=== PATIENT | female | born 1935 | race Two or more races ===

== ENCOUNTER 2016-11-15 19:58 | Inpatient (IN) | payer MEDICARE, MEDICAID ==
[2016-11-15] VITALS: BP 106/70
[~2016-11-15] VITALS: Ht 152.4 cm; Wt 69.7 kg
--- NOTE | 2016-11-15 20:19 | NUR ---
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 PT IS CURRENTLY AFEBRILE. PT IS AMBULATORY WITH A SLOW STEADY GAIT. PT WALKED TO ER 4 AND WAS PLACED ON THE MONITOR AND CONTINUOUS PULSE OX.
[2016-11-15] MEDS ORDERED: IV NS 0.9% 500 ML BAG IV ONE (20:30)
[2016-11-15 20:33] LABS: BASOPHILS % (AUTO) 0.2 % (0.0-2.0); EOSINOPHILS % (AUTO) 0.3 % (0.0-6.0); HEMATOCRIT 41 % (33-45); HEMOGLOBIN 13.7 g/dL (11.5-14.8); LYMPHOCYTES # (AUTO) 0.6 /CMM (0.8-4.8); LYMPHOCYTES % (AUTO) 6.9 % (20.0-44.0); MEAN CORPUSCULAR HEMOGLOBIN 30 PG (26.0-33.0); MEAN CORPUSCULAR HGB CONC 34 g/dl (31.0-36.0); MEAN CORPUSCULAR VOLUME 88 fL (82-100); MONOCYTES # (AUTO) 0.9 /CMM (0.1-1.30); MONOCYTES % (AUTO) 9.1 % (2.0-12.0); NEUTROPHILS # (AUTO) 7.9 /CMM (1.8-8.9); NEUTROPHILS % (AUTO) 83.5 % (43.0-81.0); PLATELET COUNT (AUTO) 305 /CMM (150-450); RDW COEFFICIENT OF VARIATION 13.8 (11.5-15.0); WHITE BLOOD COUNT (AUTO) 9.4 K/uL (4.3-11.0)
[2016-11-15 20:36] LABS: APPEARANCE,URINE Clear (CLEAR); BILIRUBIN,URINE SMALL (NEGATIVE); BLOOD, URINE Negative Ery/uL (NEGATIVE); COLOR,URINE Yellow (YELLOW); KETONES,URINE Negative (NEGATIVE); LEUKOCYTE ESTERASE ,URINE Trace (NEGATIVE); NITRITE, URINE Negative (NEGATIVE); PROTEIN,URINE Negative (NEGATIVE); UGLUCOSE Negative (NEGATIVE)
[2016-11-15 20:44] LABS: CALCIUM, SERUM 8.9 mg/dL (8.5-10.1); CARBON DIOXIDE 29 mmol/L (21-32); CHLORIDE 98 mmol/L (98-107); CREATININE 1.6 mg/dL (0.6-1.3); GLUCOSE 127 mg/dL (74-106); POTASSIUM 3.8 mmol/L (3.5-5.1); SODIUM SERUM 135 mmol/L (136-145); UREA NITROGEN, BLOOD 31 mg/dL (7-18)
[2016-11-15 20:47] LABS: BACTERIA,URINE Rare /HPF (None Seen); HYALINE CASTS, URINE Rare /LPF (None Seen); RBC,URINE 0-2 /HPF (0-2); SQUAMOUS EPITHELIAL CELL,UR Few /HPF (None Seen)
[2016-11-15 20:48] LABS: INR 1.02 (0.87-1.13); PROTHROMBIN TIME 10.6 SECS (9.5-12.7)
[2016-11-15 20:52] LABS: TROPONIN I < 0.017 ng/mL (0.00-0.056)
[2016-11-15] MEDS ORDERED: IV NS 0.9% 500 ML IV ONE (20:52)
[2016-11-15] MEDS ORDERED: IV SET PRIMARY 1 EA INFUS.SET MC ONE (20:52)
[2016-11-15 20:57] LABS: ALANINE AMINOTRANSFERASE 96 U/L (12-78); ALBUMIN 3.5 g/dL (3.4-5.0); ALKALINE PHOSPHATASE 321 U/L (46-116); ASPARTATE AMINOTRANSFERASE 88 U/L (15-37); B-TYPE NATRIURETIC PEPTIDE 5182 PG/ML (0-125); BILIRUBIN,DIRECT 4.3 mg/dL (0.0-0.2); BILIRUBIN,TOTAL 5.6 mg/dL (0.2-1.0)
[2016-11-15 21:28] LABS: BAND % (MANUAL) 1 % (0.0-5.0); LYMPHOCYTES % (MANUAL) 7 % (16-48); MONOCYTES % (MANUAL) 3 % (0-11.0); NEUTROPHILS % (MANUAL) 89 (42-76)
--- NOTE | 2016-11-15 22:10 | NUR ---
DR. NIÑO IS AT THE BEDSIDE SPEAKING TO THE PT AND THE FAMILY.
[2016-11-15] MEDS ORDERED: SIMV20TA6 PO (22:37)
[2016-11-15] MEDS ORDERED: MEMA10TA PO (22:43)
[2016-11-15] MEDS ORDERED: FERR-58 PO (22:43)
[2016-11-15] MEDS ORDERED: METO-304 PO (22:43)
[2016-11-15] MEDS ORDERED: ASPI-991 PO (22:43)
[2016-11-15] MEDS ORDERED: POTA-58 PO (22:43)
[2016-11-15] MEDS ORDERED: TRIA0.252 PO (22:43)
[2016-11-15] MEDS ORDERED: LEVO25TA7 PO (22:43)
[2016-11-15] MEDS ORDERED: FURO40TA5 PO (22:43)
--- NOTE | 2016-11-15 23:09 | NUR ---
PT APPEARS TO BE RESTING COMFORTABLY IN A CHAIR AT THE BEDSIDE. PT STATED THAT THE GURNEY WAS BOTHERING HER.
--- NOTE | 2016-11-15 23:18 | NUR ---
CALLED NURSING SUP. FOR MS BED
--- NOTE | 2016-11-15 23:40 | NUR ---
MS SHELTER ADVOCATE NOTES ADMITTED THIS 81 Y.O. FEMALE FROM ER PER WHEELCHAIR ACCOMPANIED BY FAMILY MEMBERS,WITH CHIEF COMPLAINTS OF FEVER/SOB X 1 DAY.A/O X2-3.SPEAK KOREAN ONLY.NO SKIN ISSUES,SALINE LOCK RIGHT AC INTACT AND PATENT.VITAL SIGNS WITH IN NORMAL LIMITS.C/O MILS PAIN 2/10 ON PAIN SCALE WHEN PRESSING HER ABDOMEN.NO NAUSEA AT THE MOMENT.CALL COLLINS AT BEDSIDE FOR ASSISTANCE.AWAITING ORDERS FROM DR FARLEY.
[2016-11-16] VITALS (8 sets, daily range): BP systolic 96–112; BP diastolic 54–80
[2016-11-16] MEDS ORDERED: ZOLPIDEM TARTRATE 5 MG TABLET ONE ×2 (00:45→00:53)
[2016-11-16] MEDS: ZOLPIDEM TARTRATE 5 MG TABLET PO PRN ×2 (00:50→22:36)
--- NOTE | 2016-11-16 00:50 | NUR ---
MS RN NOTES C/ INSOMNIA,MEDICATED WITH AMBIEN 5MG ORDERED,BUT FAMILY MEMBER WANTS TO GIVE 2.5 ONLY THIS TIME.
[2016-11-16] MEDS ORDERED: MAGNESIUM HYDROXIDE 30 ML UDC PO PRN (01:00)
[2016-11-16] MEDS ORDERED: MAG HYDROX/AL HYDROX/SIMETH 30 ML UDC PO PRN (01:00)
[2016-11-16] MEDS ORDERED: ACETAMINOPHEN 325 MG TABLET PO PRN (01:00)
[2016-11-16] MEDS ORDERED: Z GUARD REMEDY 2 OZ OINT TP PRN (01:00)
[2016-11-16] MEDS ORDERED: HYDROCODONE/APAP 5/325MG 1 EACH TABLET PO PRN (01:00)
[2016-11-16] MEDS ORDERED: ONDANSETRON HCL/PF 4 MG/2 ML VIAL IVP PRN (01:00)
--- NOTE | 2016-11-16 01:30 | NUR ---
MS RN NOTES INSTRUCTED NPO EXCEPT MEDS,GOING FOR NM BILIARY HIDA SCAN TOMORROW.CONSENT SIGNED BY GRAND DAUGHTER YANNI HARRIS.
--- NOTE | 2016-11-16 03:00 | NUR ---
MS RN NOTES SOUND ASLEEP,KEPT WARM AND COMFORTABLE.
[2016-11-16] MEDS ORDERED: IV SET PRIMARY PUMP SET 1 EA INFUS.SET MC ONE (04:28)
[2016-11-16] MEDS ORDERED: IV NS 0.9% 250 ML IV ONE (04:28)
[2016-11-16] MEDS ORDERED: PIPERACILLIN /TAZOBACTAM 3.375 G VIAL IV ONE (04:28)
[2016-11-16] MEDS ORDERED: SECONDARY IV SET 1 EA INFUS.SET MC ONE (04:28)
[2016-11-16] MEDS ORDERED: IV NS 0.9% 0 ML IV ONE (04:34)
[2016-11-16] MEDS ORDERED: IV D5W 50 ML IV ONE (04:38)
--- NOTE | 2016-11-16 05:44 | NUR ---
MS RN NOTES STARTED ON ZOSYN 3.375GM IVPB.
[2016-11-16] MEDS ORDERED: PIPERACILLIN /TAZOBACTAM 3.375 G in IV D5W 50 ML IV SCH (06:00)
--- NOTE | 2016-11-16 06:23 | NUR ---
MS RN NOTES FAIRLY RESTED,WITH BEARABLE ABDOMINAL PAIN.IV ABX TOLERATED WELL,NO ADVERSE REACTION NOTED,KEPT NPO EXCEPT MEDS FOR BILIARY HIDA SCAN.CONSENT SIGNED,CLL COLLINS IN REACH,NEEDS ANTICIPATED.
--- NOTE | 2016-11-16 07:30 | NUR ---
MS RN NOTES PT IN BED, AAO X 3, GRAND DAUGHTER AT BEDSIDE, SPEAK SINGAPOREAN ONLY. ON 2L O2 ON AND OFF, DENIES SOB OR ANY PAIN, RT AC 20G HL, FLUSHES WELL SITE CLEAR, NO SKIN ISSUES, NO NAUSEA AT THE MOMENT. NPO FOR HIDA SCAN TODAY. CALL COLLINS AT BEDSIDE FOR ASSISTANCE. SAFETY MEASURES IN PLACE. WILL CONT TO MONITOR.
[2016-11-16] MEDS ORDERED: FUROSEMIDE 40 MG TABLET PO SCH (09:00)
[2016-11-16] MEDS: FERROUS SULFATE (325 MG) 325 MG/TAB TABLET PO SCH (09:19)
[2016-11-16] MEDS: MEMANTINE HCL 5 MG TABLET PO SCH ×2 (09:19→16:53)
[2016-11-16] MEDS: ASPIRIN EC 81 MG TABLET.DR PO SCH (09:19)
[2016-11-16] MEDS: POTASSIUM CHLORIDE 10 MEQ TABLET.SA PO SCH (09:19)
--- NOTE | 2016-11-16 09:30 | NUR ---
MS RN NOTES ADMINISTERED DUE MEDS. SPOKE WITH [facility]. PT WILL BE PICKED UP BY 12 NOON.
[2016-11-16] MEDS ORDERED: PIPERACILLIN /TAZOBACTAM 2.25 G in IV D5W 50 ML IV SCH (12:00)
--- NOTE | 2016-11-16 12:24 | NUR ---
MS ARMSTRONG NOTES PER DR. PERKINS KEEP PATIENT NPO, WILL PROCEED WITH HIDA SCAN. Addendum: 11/16/16 at 1231 by ASHLEY JEWELL RN PER DR. PERKINS EARLIER, DR. LARRY WANTED MRCP WO CONTRAST, BUT SINCE [facility] ARE ALL PREPARED FOR HIDA SCAN, DECIDED TO PROCEED WITH THE PROCEDURE.
--- NOTE | 2016-11-16 12:29 | NUR ---
MS RN NOTE PT PICKED UP FOR HIDA SCAN.
--- NOTE | 2016-11-16 14:00 | NUR ---
MS RN NOTES PT BACK FROM HIDA SCAN. PER DR. PERKINS, PROCEED WITH MRCP WO CONTRAST.
[2016-11-16 15:03] LABS: CREATININE, URINE 90.1 MG/DL (30.0-125.0)
--- NOTE | 2016-11-16 15:10 | NUR ---
MS RN NOTES PT PICKED UP FOR MRCP.
--- NOTE | 2016-11-16 18:47 | NUR ---
MS RN NOTES PT IN BED, AAO X 3, GRAND DAUGHTER AND FAMILY AT BEDSIDE, SPEAK [place] ONLY. ON 2L O2 ON AND OFF, DENIES SOB OR ANY PAIN, RT AC 20G HL, FLUSHES WELL SITE CLEAR, NO SKIN ISSUES, NO NAUSEA AT THE MOMENT. FULL LIQUID DIET. ALL NEEDS MET. NO OTHER SIGNIFICANT CHANGE IN CONDITION. CALL COLLINS AT BEDSIDE FOR ASSISTANCE. SAFETY MEASURES IN PLACE. WILL ENDORSE TO NEXT SHIFT FOR HEIKE.
--- NOTE | 2016-11-16 19:15 | NUR ---
MS RN NOTES RECEIVED SITTING ON BEDSIDE CHAIR,A/O X2-3,SPEAK FIL[place] ONLY,DAUGHTER AT BEDSIDE.SALINE LOCK RIGHT AC INTACT AND PATENT.AMBULATE WITH ASSIST.VTE SCORE WAS 5,PATIENT IS AMBULATORY,WITH ASSISTANCE AT TIMES DUE WEAKNESS.CHEMICAL PROPHYLAXIS IN CONTRAINDICATED DUE TO ANEMIA.CALL LIGHT IN REACH,NEEDS ANTICIPATED.
[2016-11-16] MEDS ORDERED: SIMVASTATIN 20 MG TABLET PO SCH (22:00)
[2016-11-16] MEDS ORDERED: TRIAZOLAM 0.125 MG TABLET PO SCH ×2 (22:00)
--- NOTE | 2016-11-16 22:41 | NUR ---
MS RN NOTES C/O INSOMNIA,AMBIEN 5MG PO,HALF OF IT GIVEN PER FAMILY REQUEST.
--- NOTE | 2016-11-17 02:00 | NUR ---
MS RN NOTES SLEEPING,FAMILY AT BEDSIDE.
--- NOTE | 2016-11-17 05:54 | NUR ---
MS RN NOTES ASLEEP MOST OF THE NIGHT,AMBIEN 5MG PO EFFECTIVE
--- NOTE | 2016-11-17 05:55 | NUR ---
MS RN NOTES NO SIGNIFICANT CHANGE IN STATUS,DENIES ABDOMINAL PAIN,CALL LIGHT IN REACH,NEEDS ATTENDED.WILL ENDORSE TODAY NURSE FOR HEIKE.
[2016-11-17 06:32] LABS: BASOPHILS % (AUTO) 0.6 % (0.0-2.0); EOSINOPHILS # (AUTO) 0.1 /CMM (0.0-0.7); EOSINOPHILS % (AUTO) 2.2 % (0.0-6.0); HEMATOCRIT 38 % (33-45); LYMPHOCYTES # (AUTO) 1.2 /CMM (0.8-4.8); LYMPHOCYTES % (AUTO) 21.9 % (20.0-44.0); MEAN CORPUSCULAR HEMOGLOBIN 31 PG (26.0-33.0); MEAN CORPUSCULAR HGB CONC 34 g/dl (31.0-36.0); MEAN CORPUSCULAR VOLUME 90 fL (82-100); MONOCYTES # (AUTO) 0.5 /CMM (0.1-1.30); MONOCYTES % (AUTO) 9.7 % (2.0-12.0); NEUTROPHILS # (AUTO) 3.7 /CMM (1.8-8.9); NEUTROPHILS % (AUTO) 65.6 % (43.0-81.0); PLATELET COUNT (AUTO) 251 /CMM (150-450); RED BLOOD CELL COUNT(AUTO) 4.23 MIL/uL (4.0-5.2); WHITE BLOOD COUNT (AUTO) 5.6 K/uL (4.3-11.0)
[2016-11-17 06:47] LABS: CALCIUM, SERUM 8.7 mg/dL (8.5-10.1); CARBON DIOXIDE 26 mmol/L (21-32); CHLORIDE 106 mmol/L (98-107); CREATININE 0.9 mg/dL (0.6-1.3); GLUCOSE 89 mg/dL (74-106); PHOSPHORUS 2.8 mg/dL (2.5-4.9); POTASSIUM 3.6 mmol/L (3.5-5.1); SODIUM SERUM 141 mmol/L (136-145); UREA NITROGEN, BLOOD 20 mg/dL (7-18)
[2016-11-17 06:58] LABS: CHOLESTEROL 178 mg/dL (<200); HDL CHOLESTEROL 19 mg/dL (40-60); LDL 119 mg/dL (0-99); TRIGLYCERIDES 129 mg/dL (30-150)
[2016-11-17 07:58] VITALS: BP 119/72
--- NOTE | 2016-11-17 08:00 | NUR ---
MS RN NOTES PATIENT IN BED RESTING NO SOB OR ACUTE DISTRESS NOTED. GRANDDAUGHTER AT BEDSIDE. IV INTACT PATENT. BED IN LOW LOCKED POSITION. CALL WITHIN REACH. WILL CONTINUE TO MONITOR CLOSELY.
[2016-11-17] MEDS: FERROUS SULFATE (325 MG) 325 MG/TAB TABLET PO SCH (08:31)
[2016-11-17] MEDS: ASPIRIN EC 81 MG TABLET.DR PO SCH (08:31)
[2016-11-17] MEDS: POTASSIUM CHLORIDE 10 MEQ TABLET.SA PO SCH (08:31)
[2016-11-17] MEDS: MEMANTINE HCL 5 MG TABLET PO SCH (08:31)
[2016-11-17 09:26] LABS: ALBUMIN 2.8 g/dL (3.4-5.0); BILIRUBIN,DIRECT 0.9 mg/dL (0.0-0.2); BILIRUBIN,TOTAL 1.9 mg/dL (0.2-1.0); TOTAL PROTEIN, SERUM 6.7 g/dL (6.4-8.2)
--- NOTE | 2016-11-17 11:00 | NUR ---
MS RN NOTES PATIENT SEEN AND EVALUATED BY DR. EASLEY ORDERS FOR ERCP ON 11/18/2016 PATIENT CONSIDERING PROCEDURE.
--- NOTE | 2016-11-17 11:33 | NUR ---
MS RN NOTES PATIENTS FAMILY REFUSED ERCP REQUESTING TO BE DISCHARGED. DR. PERKINS MADE AWARE WILL DISCHARGE PATIENT HOME.
--- NOTE | 2016-11-17 13:30 | NUR ---
MS RN NOTES PATIENT DISCHARGED HOME WITH GRANDDAUGHTERS. DISCHARGE INSTRUCTIONS PROVIDED TO FAMILY, VERBALIZED UNDERSTANDING. DISCHARGE PROTOCOL FOLLOWED. ALL BELONGINGS ACCOUNTED FOR, BELONGING LIST SIGNED. MD AWARE OF ALL ABNORMAL LABS. PERIPHERAL IV REMOVED, WITH MINIMAL BLEEDING NOTED. ID BAND REMOVED. 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
== END 2016-11-17 13:30 | disposition home or self-care (01) | DRG 444 ==
LOC: ER 19:58 → MEDSG2 23:25
PROVIDERS: ADMIT Family Medicine; ATTEND Family Medicine
DX: K80.40 Calculus of bile duct with cholecystitis, unspecified, without obstruction (principal); N17.0 Acute kidney failure with tubular necrosis; I13.0 Hypertensive heart and chronic kidney disease with heart failure and stage 1 through stage 4 chronic kidney disease, or unspecified chronic kidney disease; I50.32 Chronic diastolic (congestive) heart failure; E86.0 Dehydration; E03.9 Hypothyroidism, unspecified; E11.22 Type 2 diabetes mellitus with diabetic chronic kidney disease; E78.5 Hyperlipidemia, unspecified; N18.9 Chronic kidney disease, unspecified; T39.395A Adverse effect of other nonsteroidal anti-inflammatory drugs [NSAID], initial encounter; D50.9 Iron deficiency anemia, unspecified; E66.9 Obesity, unspecified; F03.90 Unspecified dementia, unspecified severity, without behavioral disturbance, psychotic disturbance, mood disturbance, and anxiety; K76.0 Fatty (change of) liver, not elsewhere classified; Z79.899 Other long term (current) drug therapy; R74.0 Nonspecific elevation of levels of transaminase and lactic acid dehydrogenase [LDH]
CPT/HCPCS: 36415; 71010-TC; 74181-TC; 76705-TC; 78226; 80048-TC; 80061-TC; 80076-TC; 81000-TC; 82570-TC; 83605-TC; 83690-TC; 83735-TC; 83880; 84100-TC; 84484-TC; 85025-TC; 85730-TC; 87040-TC; 87081-TC; 87086-TC; 93307-TC; A4216; A4606; A9537; J2543; J7040; J7050; J7060; Z7610